=== PATIENT | female | born 1940 | race Caucasian/White ===

== ENCOUNTER → 2016-12-03 | Outpatient (CLI) | payer MEDICARE ==
[~2016-12-03] MED LIST: GADOBUTROL 7.5 MMOL/7.5 ML PFS ONE
== END | disposition home or self-care (01) ==
LOC: CFH 13:10
PROVIDERS: ATTEND Nurse Practitioner
DX: M79.601 Pain in right arm (principal)
CPT/HCPCS: 73220; A9585

== ENCOUNTER → 2016-12-25 | Outpatient (CLI) | payer MEDICARE | END | disposition home or self-care (01) | LOC: LAB 12:12 | PROVIDERS: ATTEND Nurse Practitioner | DX: E03.9 Hypothyroidism, unspecified (principal) | CPT/HCPCS: 36415; 84443 ==

== ENCOUNTER → 2017-04-22 | Outpatient (CLI) | payer MEDICARE ==
[~2017-04-22] MED LIST changes: -GADOBUTROL 7.5 MMOL/7.5 ML PFS ONE; +REGADENOSON 0.4 MG/5 ML SYRINGE ONE
== END | disposition home or self-care (01) ==
LOC: CFH 11:52
PROVIDERS: ATTEND Internal Medicine Cardiovascular Disease
DX: R07.9 Chest pain, unspecified (principal)
CPT/HCPCS: 78452; 93017; A9502; J2785

== ENCOUNTER → 2019-01-11 | Outpatient (CLI) | payer MEDICARE ==
[2019-01-11 12:31] LABS: CHLORIDE 108 mmol/L (98-107)
[2019-01-11 12:49] LABS: ALANINE AMINOTRANSFERASE 60 U/L (12-78); ALBUMIN 4.2 g/dL (3.4-5.0); ALKALINE PHOSPHATASE 96 U/L (45-117); ANION GAP 5 mmol/L (5-15); BILIRUBIN,TOTAL 0.6 mg/dL (0.2-1.0); CALCIUM 9.4 mg/dL (8.5-10.1); CREATININE 1.06 mg/dL (0.55-1.02); FREE T4 (FREE THYROXINE) 1.28 ng/dL (0.76-1.46); TOTAL PROTEIN 8.1 g/dL (6.4-8.2)
[2019-01-11 14:04] LABS: HEMOGLOBIN A1C 6.3 % (4.2-6.3)
== END | disposition home or self-care (01) ==
LOC: CFH 09:19
PROVIDERS: ATTEND Nurse Practitioner
DX: E03.9 Hypothyroidism, unspecified (principal); I10 Essential (primary) hypertension; R73.01 Impaired fasting glucose
CPT/HCPCS: 36415; 80053; 83036; 84439; 84443

== ENCOUNTER → 2019-07-12 | Outpatient (CLI) | payer MEDICARE ==
[2019-07-12 12:43] LABS: ALANINE AMINOTRANSFERASE 62 U/L (12-78); ALBUMIN 4.3 g/dL (3.4-5.0); ANION GAP 5 mmol/L (5-15); CHLORIDE 109 mmol/L (98-107)
[2019-07-12 12:46] LABS: ALKALINE PHOSPHATASE 100 U/L (45-117); BILIRUBIN,TOTAL 0.7 mg/dL (0.2-1.0); CALCIUM 9.4 mg/dL (8.5-10.1); CREATININE 1.11 mg/dL (0.55-1.02); TOTAL PROTEIN 8.4 g/dL (6.4-8.2)
== END | disposition home or self-care (01) ==
LOC: CFH 11:41
PROVIDERS: ATTEND Nurse Practitioner
DX: E21.5 Disorder of parathyroid gland, unspecified (principal)
CPT/HCPCS: 36415; 80053; 82306; 82330; 83970

== ENCOUNTER → 2020-12-09 | Outpatient (CLI) | payer MEDICARE | END | disposition home or self-care (01) | LOC: RAD 11:45 | PROVIDERS: ATTEND Surgery | DX: E21.0 Primary hyperparathyroidism (principal) | CPT/HCPCS: 78070; A9500 ==

== ENCOUNTER → 2021-03-14 | Outpatient (CLI) | payer MEDICARE, MEDICAID | END | disposition home or self-care (01) | LOC: CFH 10:42 | PROVIDERS: ATTEND Obstetrics & Gynecology | DX: E04.2 Nontoxic multinodular goiter (principal); D35.1 Benign neoplasm of parathyroid gland | CPT/HCPCS: 76536 ==